=== PATIENT | male | born 1960 | race African-American/Black ===

== ENCOUNTER 2016-12-04 20:54 | Emergency (ER) | payer SELFPAY ==
[2016-12-04] MEDS ORDERED: KETOROLAC 60 MG/2 ML VIAL IM ONE (23:40)
== END 2016-12-05 00:17 | disposition home or self-care (01) ==
LOC: ER 20:54
DX: S16.1XXA Strain of muscle, fascia and tendon at neck level, initial encounter (principal); G89.11 Acute pain due to trauma; M54.5 Low back pain; V59.59XA Passenger in pick-up truck or van injured in collision with other motor vehicles in traffic accident, initial encounter; I10 Essential (primary) hypertension; E11.9 Type 2 diabetes mellitus without complications
CPT/HCPCS: 72050; 72100; 82947; 96372